=== PATIENT | male | born 1985 | race African-American/Black ===

== ENCOUNTER 2018-02-13 18:12 | Emergency (ER) | payer OTHER ==
[2018-02-13 18:24] VITALS: BP 112/73; PULSE 86; TEMP 98.5; BMI 24.3
[2018-02-13] MEDS ORDERED: ALBUTEROL SO4 2.5/IPRATROPIUM 0.5 INH SOL 3 ML VIAL.NEB. NEB ONE ×4 (18:25→19:49)
[2018-02-13] MEDS ORDERED: methylPREDNISolone NA SUCC 125 MG/2 ML VIAL IVPB ONE (18:56)
--- NOTE | 2018-02-13 18:58 | PDOC ---
History of Present Illness - General Chief Complaint: Asthma Stated Complaint: Asthma - History of Present Illness Initial Comments: 32-year-old male presents for evaluation of asthma exacerbation refractory to his home inhaler. He has been intubated in the past. 02/13/18 18:57 Past History - Past Medical History Allergies/Adverse Reactions: Allergies Allergy/AdvReac Type Severity Reaction Status Date / Time No Known Allergies Allergy Verified 02/13/18 18:18 Asthma: Yes COPD: No Psychiatric Problems: Yes (DEPRESSION, ANXIETY) - Suicide/Smoking/Psychosocial Hx Smoking History: Never smoked Review of Systems - Review of Systems Respiratory: Yes: Shortness of Breath, Stridor, Wheezing *Physical Exam - Vital Signs Last Vital Signs Temp Pulse Resp BP Pulse Ox 98.5 F 86 22 112/73 100 02/13/18 18:18 02/13/18 18:18 02/13/18 18:18 02/13/18 18:18 02/13/18 18:18 - Physical Exam Comments: The patient has diffuse wheezing and stridor he is using accessory muscles 02/13/18 18:57 ED Treatment Course - RADIOLOGY Radiology Studies Ordered: Category Date Time Status CHEST PA & LAT [RAD] Stat Radiology 02/13/18 18:56 Ordered - Medications Given in the ED: ED Medications Discontinued Medications Generic Name Dose Route Start Last Admin Trade Name Freq PRN Reason Stop Dose Admin Albuterol/Ipratropium 1 amp 02/13/18 18:25 02/13/18 18:20 Duoneb - NEB 02/13/18 18:26 1 amp NOW ONE Administration Medical Decision Making - Medical Decision Making Transient her to main emergency room I've placed preliminary orders in. 02/13/18 18:57 *DC/Admit/Observation/Transfer Diagnosis at time of Disposition: Asthma - Referrals Referrals: Chelsea Delgado [Primary Care Provider] - - Patient Instructions - Post Discharge Activity
[2018-02-13] MEDS: ALBUTEROL SO4 2.5/IPRATROPIUM 0.5 INH SOL 3 ML VIAL.NEB. NEB SCH ×2 (19:11→20:12)
[2018-02-13] MEDS ORDERED: MAGNESIUM SULF 50% (8.12 MEQ/2 ML-1 GM VIAL) IVPB ONE (19:14)
[2018-02-13 19:20] LABS: BASO % 0.8 % (0-2.0); EOS % 2.7 % (0-4.5); HEMATOCRIT 42.1 % (35.4-49); HEMOGLOBIN 14.4 GM/dL (11.7-16.9); LYMPH % 35.2 % (8-40); MCH 35.5 pg (25.7-33.7); MCHC 34.2 g/dl (32.0-35.9); MEAN CELL VOLUME 103.8 fl (80-96); MEAN PLT VOLUME 8.7 fl (7.5-11.1); MONO % 5.7 % (3.8-10.2); NEUT % 55.6 % (42.8-82.8); PLATELET COUNT 248 K/MM3 (134-434); RBC 4.06 M/mm3 (4.00-5.60); RDW 12.6 % (11.9-15.9); WHITE BLOOD COUNT 9.8 K/mm3 (4.0-10.0)
--- NOTE | 2018-02-13 19:20 | PDOC ---
*Physical Exam - Vital Signs Last Vital Signs Temp Pulse Resp BP Pulse Ox 98.5 F 86 22 112/73 100 02/13/18 18:18 02/13/18 18:18 02/13/18 18:18 02/13/18 18:18 02/13/18 18:18 - Physical Exam Respiratory/Chest: positive: Respiratory Distress, Accessory Muscle Use, Stridor , Wheezing Cardiovascular: positive: Regular Rhythm, Regular Rate. negative: Murmur ED Treatment Course - LABORATORY CBC & Chemistry Diagram: 02/13/18 19:15 02/13/18 19:15 - Medications Given in the ED: ED Medications Discontinued Medications Generic Name Dose Route Start Last Admin Trade Name Freq PRN Reason Stop Dose Admin Albuterol/Ipratropium 1 amp 02/13/18 18:25 02/13/18 18:20 Duoneb - NEB 02/13/18 18:26 1 amp NOW ONE Administration Medical Decision Making - Medical Decision Making 02/13/18 19:18 Received patient from [facility]. Received patient who has conversational dyspnea at present. Patient is using accessory muscles for respirations. Patient states an asthmatic with history of one intubation thought his life. Patient has received Solu-Medrol and albuterol in fast-track. A/P: 32-year-old male with asthma exacerbation Magnesium sulfate 2 g IV now Continuous albuterol nebulizer treatments Low threshold for BiPAP and epi 02/13/18 21:37 Chest x-ray read by me: Angles clear. Cardiac silhouette is within normal limits. No focal consolidations or infiltrates are present. No acute pulmonary process noted. Patient states relief of shortness of breath and is currently speaking in full sentences. Lungs clear to auscultation bilaterally. Patient has been coughing throughout exam. Patient able to ambulate throughout emergency department maintaining an SpO2 of 98% throughout the walk. I will discharge the patient home with prescription for prednisone, Z-Chase and albuterol pump. I discussed the physical exam findings, ancillary test results and final diagnoses with the patient. I answered all of the patient's questions. The patient was satisfied with the care received and felt comfortable with the discharge plan and treatment plan. The patient will call their primary care physician within 24 hours to arrange follow-up and will return to the Emergency Department with any new, persistent or worsening symptoms. *DC/Admit/Observation/Transfer Diagnosis at time of Disposition: Asthma Qualifiers: Asthma severity: moderate Asthma persistence: unspecified Asthma complication type: with acute exacerbation Qualified Code(s): J45.901 - Unspecified asthma with (acute) exacerbation - Discharge Dispostion Disposition: HOME Condition at time of disposition: Stable - Prescriptions Prescriptions: Albuterol Sulfate Inhaler - [Ventolin HFA Inhaler -] 1 - 2 inh PO Q4H #1 inhaler Azithromycin [Zithromax 250mg Tablets -] 250 mg PO UTDICT #6 tab Prednisone [Prednisone 50 MG TABLETS] 50 mg PO DAILY #4 tablet - Referrals Referrals: Chelsea Delgado [Primary Care Provider] - - Patient Instructions Printed Discharge Instructions: Asthma -- Adult Additional Instructions: Rest, drink lots of fluids: Teas, water, soups, Pedialyte Saltwater gargles Steamy showers/seem to face break up mucus Avoid contact with others until fevers and cough resolved Lots of handwashing and good hygiene Continue [id number] medications for symptomatic relief Tylenol or Motrin for fever and pain Continue albuterol nebulizers every 4-6 hours for the next 2 days then as needed for continued cough Prednisone as directed until completed Azithromycin as directed Followup with private physician in one to 2 days Return to emergency department / pediatric hospital for worsened symptoms, fevers, dehydration - Post Discharge Activity
--- NOTE | 2018-02-13 19:45 | PDOC ---
*Physical Exam - Vital Signs Last Vital Signs Temp Pulse Resp BP Pulse Ox 98.5 F 86 22 112/73 100 02/13/18 18:18 02/13/18 18:18 02/13/18 18:18 02/13/18 18:18 02/13/18 18:18 ED Treatment Course - LABORATORY CBC & Chemistry Diagram: 02/13/18 19:15 02/13/18 19:15 - ADDITIONAL ORDERS Additional order review: 02/13/18 19:15 RBC 4.06 MCV 103.8 H MCHC 34.2 RDW 12.6 MPV 8.7 Neutrophils % 55.6 Lymphocytes % 35.2 Monocytes % 5.7 Eosinophils % 2.7 Basophils % 0.8 - Medications Given in the ED: ED Medications Discontinued Medications Generic Name Dose Route Start Last Admin Trade Name Freq PRN Reason Stop Dose Admin Albuterol/Ipratropium 1 amp 02/13/18 18:25 02/13/18 18:20 Duoneb - NEB 02/13/18 18:26 1 amp NOW ONE Administration Medical Decision Making - Medical Decision Making 02/13/18 19:45 agree with care from [facility] 02/13/18 21:35 Pt cleared after several treatments. chest xray clear. NO RAE. will discharge.. *DC/Admit/Observation/Transfer Diagnosis at time of Disposition: Asthma - Referrals Referrals: Chelsea Delgado [Primary Care Provider] - - Patient Instructions - Post Discharge Activity
[2018-02-13] MEDS ORDERED: ALBUTEROL SO4 0.083% IH SOL 2.5 MG/3 ML VIAL.NEB. NEB ONE (19:49)
[2018-02-13] MEDS ORDERED: methylPREDNISolone NA SUCC 125 MG/2 ML VIAL ONE (19:50)
[2018-02-13 19:51] LABS: ANION GAP 9 (8-16); BLOOD UREA NITROGEN 10 mg/dL (7-18); CALCIUM 9.2 mg/dL (8.5-10.1); CHLORIDE 108 mmol/L (98-107); CO2 24 mmol/L (21-32); CREATININE 1.1 mg/dL (0.7-1.3); GLUCOSE,RANDOM 82 mg/dL (74-106); SGPT/ALT 22 U/L (12-78); SODIUM 141 mmol/L (136-145)
[2018-02-13 19:53] LABS: ALK PHOS 69 U/L (45-117); BILIRUBIN,TOTAL 0.4 mg/dL (0.2-1.0); TOT PROT 7.7 g/dl (6.4-8.2)
[2018-02-13 19:56] LABS: POTASSIUM 4.9 mmol/L (3.5-5.1); SGOT/AST 15 U/L (15-37)
[2018-02-13] MEDS ORDERED: MAGNESIUM 1GM/D5W - 2 GM/200 ML IVPB IVPB ONE (19:57)
[2018-02-13] MEDS: ALBUTEROL SO4 0.083% IH SOL 2.5 MG/3 ML VIAL.NEB. NEB SCH ×2 (20:13→20:19)
== END 2018-02-13 22:03 | disposition home or self-care (01) ==
LOC: JER 18:12 → JERFT 18:12 → JER 22:03
PROC: 3E0F7GC Introduction of Other Therapeutic Substance into Respiratory Tract, Via Natural or Artificial Opening (ICD-10-PCS; principal; 2018-02-13)
PROC: 3E0F7GC Introduction of Other Therapeutic Substance into Respiratory Tract, Via Natural or Artificial Opening (ICD-10-PCS; 2018-02-13)
PROC: 3E033GC Introduction of Other Therapeutic Substance into Peripheral Vein, Percutaneous Approach (ICD-10-PCS; 2018-02-13)
PROC: 3E0333Z Introduction of Anti-inflammatory into Peripheral Vein, Percutaneous Approach (ICD-10-PCS; 2018-02-13)
DX: J45.901 Unspecified asthma with (acute) exacerbation (principal)
CPT/HCPCS: 36415; 71046-TC-FY; 80053; 85025; 94640; 96374; 96375; 99281-25; J7620